=== PATIENT | male | born 1985 | race Caucasian/White ===

== ENCOUNTER 2018-03-03 13:21 | Emergency (ER) | payer OTHER ==
[2014-12-29 13:00] VITALS: Wt 74.8 kg
[~2018-03-03 13:21] MED LIST: DIAZ-305 PO; GABA-503 PO; HYDR-393 PO; HYDR2TAB74 PO; OXYC-823 PO; OXYC20TA99 PO; TRAM-420 PO; VAR05PT PO; ZOLP-350 PO
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
[2018-03-03] MEDS ORDERED: HYDR-385 PO (14:08)
[2018-03-03] MEDS ORDERED: THIAMINE HCL(*) 200 MG/2 ML IN 100 MG, FOLIC ACID(*) 50 MG/10 ML INJ 1 MG, MULTIVITAMIN... IV ONE (14:09)
[2018-03-03] MEDS ORDERED: LORazepam 2 MG/ML VIAL IVP ONE (14:10)
[2018-03-03] MEDS ORDERED: NICOTINE 21 MG/24 HR PATCH TD SCH (14:10)
[2018-03-03 14:26] LABS: PLATELET COUNT, AUTOMATED 437 K/uL (150-450)
[2018-03-03] MEDS ORDERED: ONDANSETRON 4 MG/2 ML VIAL IVP ONE (14:35)
[2018-03-03] MEDS ORDERED: DIAZEPAM 10 MG TAB PO ONE ×2 (14:35→16:30)
[2018-03-03 16:29] VITALS: BP 122/80
== END 2018-03-03 16:58 | disposition other institution (70) ==
LOC: ER 13:42
DX: F10.232 Alcohol dependence with withdrawal with perceptual disturbance (principal)
CPT/HCPCS: 80305; 80320; 80329; 81001; 83735; 84443; 85025; 96365; 96366; 96375; 99285; J2060; J2405; J3411; J3475; J7030; 82040; 82247; 82310; 82374; 82435; 82565; 82947; 84075; 84132; 84155; 84295; 84450; 84460; 84520

== ENCOUNTER 2018-03-03 16:33 | Inpatient (IN) | payer SELFPAY ==
[2014-12-29 13:00] VITALS: Ht 175.3 cm; Wt 70.3 kg
[~2018-03-03] VITALS: Ht 175.3 cm; Wt 70.3 kg
[~2018-03-03 16:33] MED LIST changes: +HYDR-385 PO
[2018-03-03 16:55] VITALS: BP 120/60
[2018-03-03] MEDS ORDERED: MAG HYD/AL HYD/SIMETH 30ML UDC PO PRN (17:10)
[2018-03-03] MEDS ORDERED: IBUPROFEN 800 MG TAB PO PRN (17:15)
--- NOTE | 2018-03-03 17:16 | Pharmacy Note ---
Pharmacy Note Date Provider Notified: March 03, 2018 Time Provider Notified: 17:14 Note: Order for ibuprofen 800 mg po q4h prn pain is above max of 3200 mg/day. Called to inform-change order to q6h prn pain. ELEANOR HARO March 03, 2018 17:16
[2018-03-03] MEDS ORDERED: NICOTINE CARTRIDGE 1 EA PO PRN (17:30)
[2018-03-03] MEDS: IBUPROFEN 800 MG TAB PO PRN ×2 (17:42→23:42)
[2018-03-03] MEDS: DIAZEPAM 10 MG TAB PO PRN ×6 (17:42→23:42)
[2018-03-03] MEDS: NICOTINE INH SYSTEM 10 MG/INH INH PRN ×3 (19:15→23:42)
[2018-03-03 20:53] VITALS: BP 134/92
[2018-03-03] MEDS: GABAPENTIN 300 MG CAP PO SCH (21:42)
[2018-03-03 23:40] VITALS: BP 128/86
[2018-03-04] MEDS: DIAZEPAM 10 MG TAB PO PRN ×7 (00:37→22:48)
[2018-03-04 06:00] VITALS: BP 123/82
[2018-03-04] MEDS: IBUPROFEN 800 MG TAB PO PRN ×3 (06:10→23:03)
[2018-03-04] MEDS: MULTIVITAMINS PO SCH (08:29)
[2018-03-04] MEDS: GABAPENTIN 300 MG CAP PO SCH ×3 (08:30→21:38)
[2018-03-04] MEDS: THIAMINE HCL 100 MG TAB PO SCH (08:30)
[2018-03-04] MEDS: FOLIC ACID 1 MG TAB PO SCH (08:30)
[2018-03-04 10:00] VITALS: BP 116/74
[2018-03-04] MEDS ORDERED: oxyCODONE HCL 5 MG CAP PO PRN (11:35)
[2018-03-04 12:08] VITALS: BP 139/101
[2018-03-04 14:04] VITALS: BP 115/78
[2018-03-04] MEDS: NICOTINE INH SYSTEM 10 MG/INH INH PRN (15:19)
[2018-03-04] MEDS ORDERED: LOPERAMIDE HCL 2 MG CAP PO PRN (16:00)
--- NOTE | 2018-03-04 16:26 | EKG ---
FACILITY: [facility] - [place] PATIENT NAME: DEVON HAMPTON : [id number] MR: [id number] V: [id number] EXAM DATE: ORDERING PHYSICIAN: GI PIERCE TECHNOLOGIST: Test Reason : BRUISED STERNUM Blood Pressure : / mmHG Vent. Rate : 096 BPM Atrial Rate : 096 BPM P-R Int : 142 ms QRS Dur : 074 ms QT Int : 370 ms P-R-T Axes : 065 029 053 degrees QTc Int : 467 ms Sinus rhythm No acute appearing ST changes Somewhat tall T waves No previous ECGs available Confirmed by MYRNA JERNIGAN ([id number] on 03/05/2018 5:28:04 AM Referred By: KARI Confirmed By:MYRNA JERNIGAN
[2018-03-04] MEDS: oxyCODONE HCL 5 MG CAP PO PRN ×2 (16:59→21:38)
[2018-03-04 21:20] VITALS: BP 102/60
[2018-03-05] VITALS: BP 110/95
[2018-03-05] MEDS: DIAZEPAM 10 MG TAB PO PRN (00:08)
[2018-03-05] MEDS: oxyCODONE HCL 5 MG CAP PO PRN ×4 (01:31→16:45)
[2018-03-05 06:16] LABS: PLATELET COUNT, AUTOMATED 285 K/uL (150-450)
[2018-03-05 08:05] VITALS: BP 124/82
[2018-03-05] MEDS: FOLIC ACID 1 MG TAB PO SCH (08:10)
[2018-03-05] MEDS: MULTIVITAMINS PO SCH (08:10)
[2018-03-05] MEDS: GABAPENTIN 300 MG CAP PO SCH ×2 (08:10→14:05)
[2018-03-05] MEDS: THIAMINE HCL 100 MG TAB PO SCH (08:10)
--- NOTE | 2018-03-05 09:59 | BHS Progress Note ---
BHS - Subjective Progress Notes Subjective Patient cooperative today, and indicating an understanding of treatment. Alcohol withdrawal will likely be complete by tomorrow. Mood frustrated about ongoing alcohol withdrawal but overall mood is okay today. Patient denies any other concerns today. Suicidal Ideation: None Homicidal Ideation: None BHS - Objective Physical Exam Vital Signs Vital Signs Date Time Temp Pulse Resp B/P (MAP) Pulse Ox O2 Delivery O2 Flow Rate FiO2 03/05/18 08:05 98.1 98 20 124/82 (96) 95 Room Air 03/04/18 21:20 2.0 Hematology Test 03/05/18 05:54 Red Blood Count 4.28 M/uL (4.00-5.60) Mean Corpuscular Volume 96.6 fL (80.0-96.0) Mean Corpuscular Hemoglobin 33.3 pg (26.0-33.0) Mean Corpuscular Hemoglobin Concent 34.5 g/dL (32.0-36.0) Red Cell Distribution Width 13.5 % (11.5-14.5) Mean Platelet Volume 7.1 fL (7.2-11.1) Neutrophils (%) (Auto) 52.3 % (39.4-72.5) Lymphocytes (%) (Auto) 33.1 % (17.6-49.6) Monocytes (%) (Auto) 10.1 % (4.1-12.4) Eosinophils (%) (Auto) 3.6 % (0.4-6.7) Basophils (%) (Auto) 0.9 % (0.3-1.4) Nucleated RBC Relative Count (auto) 0.0 /100WBC Neutrophils # (Auto) 4.1 K/uL (2.0-7.4) Lymphocytes # (Auto) 2.6 K/uL (1.3-3.6) Monocytes # (Auto) 0.8 K/uL (0.3-1.0) Eosinophils # (Auto) 0.3 K/uL (0.0-0.5) Basophils # (Auto) 0.1 K/uL (0.0-0.1) Nucleated RBC Absolute Count (auto) 0.00 K/uL Sodium Level 140 mmol/L (137-145) Potassium Level 3.7 mmol/L (3.5-5.0) Chloride Level 103 mmol/L (98-107) Carbon Dioxide Level 25 mmol/L (22-30) Blood Urea Nitrogen 12 mg/dl (9-21) Creatinine 0.50 mg/dl (0.66-1.25) Glomerular Filtration Rate Calc > 60.0 Random Glucose 91 mg/dl (75-110) Calcium Level 9.0 mg/dl (8.4-10.2) Magnesium Level 1.8 mg/dl (1.7-2.2) Total Bilirubin 0.4 mg/dl (0.2-1.3) Aspartate Amino Transf (AST/SGOT) 54 U/L (0-35) Alanine Aminotransferase (ALT/SGPT) 48 U/L (0-56) Alkaline Phosphatase 79 U/L (0-126) Total Protein 5.6 gm/dl (6.3-8.2) Albumin 3.4 g/dl (3.5-5.0) Chemistry Test 03/05/18 05:54 White Blood Count 7.9 k/uL (4.5-11.0) Red Blood Count 4.28 M/uL (4.00-5.60) Hemoglobin 14.2 g/dL (14.0-18.0) Hematocrit 41.3 % (42.0-52.0) Mean Corpuscular Volume 96.6 fL (80.0-96.0) Mean Corpuscular Hemoglobin 33.3 pg (26.0-33.0) Mean Corpuscular Hemoglobin Concent 34.5 g/dL (32.0-36.0) Red Cell Distribution Width 13.5 % (11.5-14.5) Platelet Count 285 K/uL (150-450) Mean Platelet Volume 7.1 fL (7.2-11.1) Neutrophils (%) (Auto) 52.3 % (39.4-72.5) Lymphocytes (%) (Auto) 33.1 % (17.6-49.6) Monocytes (%) (Auto) 10.1 % (4.1-12.4) Eosinophils (%) (Auto) 3.6 % (0.4-6.7) Basophils (%) (Auto) 0.9 % (0.3-1.4) Nucleated RBC Relative Count (auto) 0.0 /100WBC Neutrophils # (Auto) 4.1 K/uL (2.0-7.4) Lymphocytes # (Auto) 2.6 K/uL (1.3-3.6) Monocytes # (Auto) 0.8 K/uL (0.3-1.0) Eosinophils # (Auto) 0.3 K/uL (0.0-0.5) Basophils # (Auto) 0.1 K/uL (0.0-0.1) Nucleated RBC Absolute Count (auto) 0.00 K/uL Glomerular Filtration Rate Calc > 60.0 Calcium Level 9.0 mg/dl (8.4-10.2) Magnesium Level 1.8 mg/dl (1.7-2.2) Total Bilirubin 0.4 mg/dl (0.2-1.3) Aspartate Amino Transf (AST/SGOT) 54 U/L (0-35) Alanine Aminotransferase (ALT/SGPT) 48 U/L (0-56) Alkaline Phosphatase 79 U/L (0-126) Total Protein 5.6 gm/dl (6.3-8.2) Albumin 3.4 g/dl (3.5-5.0) Muscle Strength and Tone: Other (patient states he has chronic pain, ) Gait and Station: Steady [facility] Medications Reviewed: Side Effects, Benefits of Medication, Risks Allergies Reviewed: Yes Mental Status Exam General Appearance: Casual, Well Groomed, Good Eye Contact, Cooperative, Polite , Good Interaction, No Unkept, No Tearful, No Psychomotor Agitation, No Psychomotor Retardation, No Bizarre Mannerisms, No Tics Speech: Clear, Spontaneous, Normal Rate, Normal Rhythm, Normal Volume, Normal Tone, No Garbled, No Rambling, No Inappropriate Mood: Euthymic Affect: Full and Appropriate, Calm, No Tearful, No Anxious, No Agitated Thought Process: Organized, Logical, Goal Directed, No Loose Associations, No Flight of Ideas Thought Content: No Suicidal Ideation, No Homicidal Ideation, No Delusions, No Auditory Halllucinations, No Visual Hallucinations, No Thought Broadcasting, No Ideas of Reference, No Obsessions, No Compulsions Sensorium: Clear Cognition: Alert & Oriented-Person, Alert & Oriented-Place, Alert & Oriented- Time Memory: Immediate, Recent, Remote Intelligence: Average Insight Judgment: Fair (in absence of alcohol) Result Diagram: 03/05/18 0554 03/05/18 0554 [facility] Assessment and Plan [id number] Encounter Date: March 05, 2018 [id number] Encounter Time: 10:00 [facility] Plan: Necessary Precautions, Individual/Group Therapy, Admin/Titrate Meds, Educate Patient Multpiple Antipsychotics Used: No Problems: (1) Alcohol withdrawal Status: Acute (2) Alcohol use disorder, severe, in controlled environment Status: Chronic Condition 1. continue treatment 2. likely discharge tomorrow when alcohol withdrawal is complete. Problem Qualifiers (1) Alcohol withdrawal: Complication of substance-induced condition: uncomplicated Qualified Codes: F10.230 - Alcohol dependence with withdrawal, uncomplicated GI PIERCE MD March 05, 2018 09:59
[2018-03-05] MEDS: IBUPROFEN 800 MG TAB PO PRN (11:25)
[2018-03-05 12:15] VITALS: BP 120/82
[2018-03-05] MEDS: NICOTINE INH SYSTEM 10 MG/INH INH PRN (12:43)
[2018-03-05] MEDS ORDERED: MULT-1379 PO (13:56)
[2018-03-05] MEDS ORDERED: GABA-549 PO (13:56)
[2018-03-05] MEDS ORDERED: FOLI-68 PO (13:56)
[2018-03-05] MEDS ORDERED: THIA100T62 PO (13:57)
[2018-03-05] MEDS ORDERED: IBUP800T37 PO (13:58)
[2018-03-05] MEDS ORDERED: NIC10R INH (14:00)
[2018-03-05] MEDS ORDERED: NICOTROL INHALER PO (14:00)
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
[2018-03-05] MEDS ORDERED: DIAZEPAM 10 MG TAB PO ONE (16:35)
[2018-03-05 16:36] VITALS: BP 124/78
--- NOTE | 2018-03-06 15:55 | DISCHARGE SUMMARY ---
Patient was seen at approximately 0900 hours on the morning of March 05, 2018 for note concerning this dictation. FINAL DIAGNOSES PER DSM-V Alcohol withdrawal considered complete. Alcohol use disorder severe. Patient having supportive relationship with some family members. REASON FOR ADMISSION This is a 32-year-old male who presented voluntarily from the [facility] for treatment for alcohol detoxification. Patient arrived, was admitted through the [facility] Emergency Room without difficulty. Patient's alcohol withdrawal was considered moderate in nature and treated to completion with diazepam. Patient was noted to have some chronic pain issues as well, stating he had recently sustained some cervical fractures. Patient noted to bring back support and C-spine collar with him that he was supposed to be wearing according to the patient. Patient refused to wear it on the unit even though he brought it with him. Patient then asking for pain medications. Low dose opiates were given on the unit. Patient noted to have opiate pain medications in his possession in a bottle upon admission as well. On the day of discharge, patient's alcohol withdrawal was considered complete. Patient was instructed that he would discharge the next morning around noon. Patient was in full agreement with this until this provider left the hospital, then patient requesting to discharge. Patient likely demonstrating some sociopathy-type traits, but overall remained calm and cooperative. Patient was later deemed stable to discharge, at around 1700 hours in the evening to care of responsible republican. Patient would not drive. Patient agreed and patient discharged to home. MENTAL STATUS EXAMINATION Please see emergency room note. PHYSICAL EXAMINATION GENERAL: Please see emergency room note. Notable for a 32-year-old male in a state of alcohol withdrawal. VITAL SIGNS: At the time of admission, temperature 98.1, pulse 110, respiratory rate 16, blood pressure 153/121 and pulse oximetry 94 on room air. At the time of discharge from [facility], vital signs showed temperature 98.5, pulse 107, respiratory rate 18, blood pressure 124/78 and pulse oximetry 98 on room air. LABORATORY DATA CBC notable for MCV and MCH elevated at 96.6 and 33.3 respectively. Chemistry panel on March 05, 2018 notable for AST slightly elevated at 54, otherwise unremarkable CMP upon admission. Toxicology screen positive for opiates which patient is believed to have been prescribed. Acetaminophen level of 29. Negative for other substances of abuse, and a nondetectable serum alcohol level. Urinalysis did have urine protein present and urine urobilinogen present. TSH 2.44 at the time of admission. MENTAL STATUS EXAMINATION AT THE TIME OF DISCHARGE GENERAL APPEARANCE, BEHAVIOR AND ATTITUDE: This is a cooperative 32-year-old male making [id number] eye contact. No periods of tearfulness. No bizarre mannerisms or tics. No psychomotor agitation or retardation. SPEECH: Within normal limits, regular rate, rhythm volume and tone. MOOD: Described as good. AFFECT: Full and times and mood congruent overall. THOUGHT PROCESSES: Logical, goal directed. No loose associations or flight of ideas. THOUGHT CONTENT: Free of auditory or visual hallucinations, ideas of reference , thought broadcastings, delusions, obsessions, compulsions. Patient denying any suicidal or homicidal ideation. SENSORIUM: Clear. COGNITION: Alert and oriented to person, place, time and situation. MEMORY: Immediate, recent and remote estimated intact. INTELLIGENCE: Average based on interview. INSIGHT AND JUDGMENT: Considered grossly intact in the absence of alcohol and appropriate for continued outpatient management. RESULTS OF TESTING IMAGING: None. LABORATORY DATA: See above. CONSULTATIONS: None. TREATMENT Patient received medications, participated in individual and group therapy. HOSPITAL COURSE Patient overall remained cooperative and took an active role in his treatment. Patient interacting in a way suggestive of some underlying antisocial personality traits. Patient deciding that he wanted to discharge slightly prior to originally scheduled discharge time. However, patient was deemed stable enough to do so and was discharged into the care of a responsible republican. CONDITION OF PATIENT ON DISCHARGE Stable in the absence of alcohol. Considered to be a minimal risk to himself or others and appropriate for outpatient care. DISPOSITION Patient was discharged to the home care of a responsible adult. Patient would follow up with [facility] in [place]. Followup with medical concerns with primary care provider accordingly. Call crisis line should symptoms return. Patient would take medications as prescribed and abstain from alcohol and all products that contain acetaminophen. DISCHARGE MEDICATIONS 1. Folic acid 1 mg daily. 2. Neurontin 300 mg three times a day. 3. Multivitamin daily. 4. Vitamin B1 100 mg daily. 5. Motrin 800 mg p.r.n. for pain. 6. Nicotine replacement over the counter to abstain from smoking as needed. Risks, benefits and alternatives of the above discharge plan were discussed. Informed consent was given to proceed with above discharge plan by this competent patient and patient's responsible republican picking him up. [facility]
== END 2018-03-05 17:25 | disposition home or self-care (01) | DRG 897 ==
LOC: BHS 16:33
PROVIDERS: ADMIT Registered Nurse Psychiatric/Mental Health, Adult; ATTEND Registered Nurse Psychiatric/Mental Health, Adult
DX: F10.230 Alcohol dependence with withdrawal, uncomplicated (principal); Z81.8 Family history of other mental and behavioral disorders; Z81.1 Family history of alcohol abuse and dependence; Y90.0 Blood alcohol level of less than 20 mg/100 ml; Z98.1 Arthrodesis status
CPT/HCPCS: 36415; 82040; 82247; 82310; 82374; 82435; 82565; 82947; 83735; 84075; 84132; 84155; 84295; 84450; 84460; 84520; 85025; 93005